=== PATIENT | female | born 1960 | race Caucasian/White ===

== ENCOUNTER 2019-11-30 12:25 | Inpatient (IN) ==
--- NOTE | 2019-11-08 15:28 | PAT Medication Instructions ---
Medication Instructions Date of Service November 08, 2019 Home Medications acetaminophen [Tylenol Extra Strength] 500 mg PO Q6H PRN aluminum hydrox-magnesium carb [Gaviscon] 1 - 2 tab PO BID PRN cholecalciferol (vitamin D3) [Vitamin D3] 125 mcg PO QAM diazepam [Valium] 5 mg PO HS diphenhydramine HCl [Judit-[place] Plus Allergy] 25 mg PO HS PRN hydrochlorothiazide 12.5 mg PO Q2D ibuprofen 600 mg PO Q8H PRN losartan 100 mg PO QAM ondansetron HCl [Zofran] 4 mg PO Q6H PRN pantoprazole [Protonix] 40 mg PO QAM potassium gluconate 550 mg PO DAILY PRN sennosides-docusate sodium [Stool Softener-Laxative] 1 tab-cap PO HS ASK your surgeon for instructions ibuprofen 600 mg PO Q8H PRN DO NOT take the morning of surgery aluminum hydrox-magnesium carb [Gaviscon] 1 - 2 tab PO BID PRN cholecalciferol (vitamin D3) [Vitamin D3] 125 mcg PO QAM hydrochlorothiazide 12.5 mg PO Q2D losartan 100 mg PO QAM potassium gluconate 550 mg PO DAILY PRN Take morning of surgery With a small sip of water, OTHERWISE NOTHING TO EAT OR DRINK AFTER MIDNIGHT: acetaminophen [Tylenol Extra Strength] 500 mg PO Q6H PRN (okay to take up to 4 hours prior to surgery if needed) ondansetron HCl [Zofran] 4 mg PO Q6H PRN (if needed) pantoprazole [Protonix] 40 mg PO QAM Take evening before surgery acetaminophen [Tylenol Extra Strength] 500 mg PO Q6H PRN (if needed) aluminum hydrox-magnesium carb [Gaviscon] 1 - 2 tab PO BID PRN (if needed) diazepam [Valium] 5 mg PO HS diphenhydramine HCl [Judit-[place] Plus Allergy] 25 mg PO HS PRN (if needed) ondansetron HCl [Zofran] 4 mg PO Q6H PRN (if needed) potassium gluconate 550 mg PO DAILY PRN (if needed) sennosides-docusate sodium [Stool Softener-Laxative] 1 tab-cap PO HS Other Notes If you have any questions please call us at [phone] or [phone] or [phone] or [phone]
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
--- NOTE | 2019-11-09 11:50 | XRay Report ---
XR chest Pre-admission PA/Lat CLINICAL HISTORY: Preoperative chest COMPARISON STUDY: No previous studies for comparison. FINDINGS: The cardiac and mediastinal contours are normal. There is no evidence of focal pulmonary co nsolidation. There is no evidence of failure. No pleural effusions are visualized.[There is minor lef t basilar atelectatic change. There is mild right-sided pleural thickening/extrapleural fat along the right lateral chest wall. IMPRESSION: No active disease in the chest. ACT 112: Negative or not required by law. Electronically signed by: Roman Toussaint M.D. 11/09/2019 11:48 AM
[2019-11-09 12:00] LABS: Basophils # (auto) 0.06 K/uL (0-0.2); Eosinophils # (auto) 0.28 K/uL (0-0.5); Eosinophils % (auto) 4.6 %; Hematocrit (blood only) 41.3 % (37-47); Hemoglobin 13.5 g/dL (12.0-16.0); Immature Granulocytes # (auto) 0.01 K/uL (0.00-0.02); Immature Granulocytes % (auto) 0.2 %; Lymphocytes # (auto) 1.19 K/uL (1.2-3.4); Lymphocytes % (auto) 19.6 %; Mean Corpuscular Hemoglobin 30.1 pg (25-34); Mean Corpuscular Hgb Conc 32.7 g/dL (32-36); Mean Platelet Volume 9.6 fL (7.4-10.4); Monocytes # (auto) 0.46 K/uL (0.11-0.59); Monocytes % (auto) 7.6 %; Neutrophils # (auto) 4.08 K/uL (1.4-6.5); Platelet Count 314 K/uL (130-400); RDW Coefficient of Variation 13.4 % (11.5-14.5); RDW Standard Deviation 44.7 fL (36.4-46.3); Red Blood Count 4.49 M/uL (4.2-5.4); White Blood Count 6.08 K/uL (4.8-10.8)
[2019-11-09 12:01] LABS: Appearance Urine Clear (Clear); Bilirubin Urine Negative (Negative); Blood Urine Negative (Negative); Color Urine Yellow; Glucose Urine UA Negative (Negative); Ketones Urine Negative (Negative); Leukocyte Esterase Urine Negative (Negative); Nitrite Urine Negative (Negative); Protein Urine Negative (Negative); Specific Gravity Urine 1.009 (1.000-1.030); Urobilinogen Urine Negative (Negative)
[2019-11-09 12:08] LABS: Calcium 9.5 mg/dl (8.5-10.1); Creatinine Clr Calc Pharmacy 61.1 ml/min; Est GFR (African American) 64.6; Est GFR (Non-African American) 55.8; Potassium 3.4 mmol/L (3.5-5.1)
[2019-11-09 12:12] LABS: Partial Thromboplastin Time 27.1 Seconds (21.0-31.0); Prothrombin Time 10.5 Seconds (9.0-12.0)
[~2019-11-30 12:25] MED LIST: ACETAMINOPHEN 500 MG TAB PO SCH; CeleBREX 200 MG CAP PO SCH; GABAPENTIN 600 MG DOSE PO SCH; LR 15ML/HR IV SCH; ceFAZolin 2000MG 2,000 MG/15 ML SYR IV SCH
[2019-11-30] MEDS ORDERED: MIDAZOLAM HCL 1 MG/ML 2ML VIAL ONE (12:31)
[2019-11-30] MEDS ORDERED: fentaNYL citrate 100 MCG/2 ML VIAL ONE (12:31)
[2019-11-30] MEDS ORDERED: DEXAMETHASONE SOD INJ 4 MG/ML VIAL ONE (13:34)
[2019-11-30] MEDS ORDERED: ROCURONIUM BROMIDE 10 MG/ML 5 ML VIAL IV ONE (13:34)
[2019-11-30] MEDS ORDERED: LIDOCAINE HCL 2% 2 ML VIAL/AMP(20MG/ML) INFIL ONE (13:34)
[2019-11-30] MEDS ORDERED: NEOSTIGMINE METHYLSULFATE 1 MG/ML 10ML VIAL ONE (13:34)
[2019-11-30] MEDS ORDERED: PROPOFOL IV EMULSION 10 MG/ML 20 ML VIAL IV ONE (13:34)
[2019-11-30] MEDS ORDERED: GLYCOPYRROLATE 0.2 MG/ML VIAL ONE (13:34)
[2019-11-30] MEDS ORDERED: ONDANSETRON INJ 2 MG/ML 2 ML VIAL ONE (13:34)
[2019-11-30] MEDS ORDERED: LARYING-O-JET KIT (LTA) ONE (13:34)
[2019-11-30] MEDS ORDERED: PHENYLEPHRINE 100MCG/ML 5ML SYR ONE (13:34)
[2019-11-30] MEDS ORDERED: ePHEDrine sulfate 50 MG/ML SYR ONE (13:34)
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
--- NOTE | 2019-11-30 13:59 | History & Physical Bridge Note ---
Date of Service November 30, 2019 History & Physical Bridge Note I have examined the patient, reviewed the History & Physical and in the interval since the performance of the History & Physical I have noted the following changes of clinical significance: no changes noted
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
[2019-11-30] MEDS ORDERED: HYDROmorphone INJ 1 MG/ML SYRINGE IV PRN (14:09)
[2019-11-30] MEDS ORDERED: ePHEDrine sulfate 50 MG/ML AMP IV PRN (14:09)
[2019-11-30] MEDS ORDERED: ATROPINE SULFATE 0.1 MG/ML 10ML SYR IV PRN (14:09)
[2019-11-30] MEDS ORDERED: ONDANSETRON INJ 2 MG/ML 2 ML VIAL IV PRN (14:09)
[2019-11-30] MEDS ORDERED: BACITRACIN INJ 50,000 UNIT VIAL ONE (14:14)
[2019-11-30] MEDS ORDERED: BUPIVACAINE/EPINEPHRINE 0.25% 1:200,000 30 ML VIAL ONE (14:14)
[2019-11-30] MEDS ORDERED: HYDROmorphone INJ 2 MG/ML SYR/VIAL ONE (15:28)
[2019-11-30] MEDS ORDERED: FLOSEAL HEMOSTATIC MATRIX 10ML TOP ONE (15:29)
--- NOTE | 2019-11-30 16:10 | Operative Report ---
Post Operative Report Pre & Post Diagnosis Operation Date: 11/30/19 07:00 Pre-Op Diagnosis: Spinal Stenosis, Lumbar Region with Neurogenic Claudication Post-Op Diagnosis: Spinal Stenosis, Lumbar Region with Neurogenic Claudication I identified the patient and participated in the time-out.: Yes Procedure Operation Date: 11/30/19 07:00 Actual Procedures #1 lumbar decompression with bilateral medial facetectomies and foraminotomies L4-5 per #2 posterior spinal fusion L4-5. #3 placement of posterior instrumentation L4-5. #4 interbody fusion L4-5. #5 placement peek cage 12 x 22 mm L4-5 per #6 placement locally harvested morselized autograft in the posterior gutters. #7 placement infuse collagen sponge, master graft in the posterior lateral gutters and osteopenic body space. Surgeon Chase Saab, DO Photographer Apprentice Lithographic Vicky Lowe Estimated Blood Loss 150 Findings See Below The patient is 5 foot 2 inches tall weighing over 98 kg with a BMI in excess of 39. Patient's body habitus did create significant technical difficulty requiring her deepest retractors and longus instruments in order to perform her procedure. This added at least 50% increase to the operative time. Specimens None Indications This is a 4-year-old female who presents with above-mentioned diagnosis after failing course of nonoperative care is here for surgical invention. Description of Procedure Patient was met with identified informed consent obtained. Patient was then ta mark to the operative suite underwent an patient placed in a prone position the Carlos table on top of the Braxton frame. All bony prominences well-padded eyes inspected to ensure no external pressure placed upon them. This point the lumbar spine was prepped and draped in normal sterile fashion. Sharp dissection with the assistance of Bovie cautery was performed down to and exposing the lamina and transverse processes of L4 and L5 bilaterally. From caudal cephalad fashion complete laminectomy of L4 was performed including bilateral medial facetectomies and foraminotomies addressing severe spinal stenosis. Pedicle screws were then placed in L4 and L5 bilaterally with assistance of fluoroscopy and appropriately sized nicolás placed. By way the transforaminal portion of right a complete discectomy was performed endplates curetted to subcortical any bone and a 12 x 22 mm peek cage filled with osteobone graft tapped in position. The rods were then locked into final position bilaterally. The transverse processes of L4 and L5 burred to subcortical bleeding bone. Infuse collagen sponge master graft local autograft was placed in the posterior gutters. 15 round BREA drain inserted. The incision was then closed with 1 Vicryl the fascia 2-0 Vicryl subcutaneously and 4 Monocryl for final skin closure. Steri-Strips dressings placed. Patient waken taken PACU stable condition. Please note spinal cord monitoring was utilized at the procedure and no changes noted. Lastly Vicky Lowe was present at the entire surgery involved the patient positioning complex portions of the surgery and final skin closure. I attest to the content of the Intraoperative Record and any orders documented therein. Any exceptions are noted below.
--- NOTE | 2019-11-30 16:26 | Fluoroscopy Report ---
INTRAOPERATIVE RADIOGRAPHS CLINICAL HISTORY: L4-L5 spinal fusion. Fluoroscopy time: 12 seconds. FINDINGS: 2 spot fluoroscopic views of the lumbar spine are presented. There has been discectomy at L 4-L5 with laminectomy and posterior fusion at this level. Interpedicular screws are in place. The ort hopedic hardware appears intact. IMPRESSION: Intraoperative images from L4-L5 spinal fusion as above. Electronically signed by: Maxwell Lindsay M.D. 11/30/2019 4:25 PM
[2019-11-30] MEDS: fentaNYL citrate 100 MCG/2 ML VIAL IV PRN ×2 (16:36→18:44)
--- NOTE | 2019-11-30 17:04 | Anesthesiology Progress Note ---
Date of Service November 30, 2019 Anesthesia Post Procedure Vital Signs Vital Signs: Temp Pulse Pulse Resp BP Pulse Ox 11/30/19 16:50 36.4 C L 56 L 15 131/85 100 11/30/19 16:40 60 12 136/77 100 11/30/19 16:30 83 18 136/79 100 11/30/19 16:22 36.7 C 93 H 14 141/93 H 99 11/30/19 12:58 36.9 C 96 H 16 133/91 95 Pain Intensity Back: Pain Intensity: 4 Transfer of Care Handoff Completed per policy Notes Mental Status: alert / awake / arousable and participated in evaluation Patient Amnestic to Procedure: Yes Nausea / Vomiting: adequately controlled Pain: adequately controlled Airway Patency, RR, SpO2: stable & adequate BP & HR: stable & adequate Hydration State: stable & adequate Anesthetic Complications: no major complications apparent and Pt Satisfied with anesthetic care
[2019-11-30] MEDS ORDERED: traMADol HCL 50 MG TABLET PO PRN (19:25)
[2019-11-30] MEDS ORDERED: bisacodyL 10 MG SUPP PR PRN (19:25)
[2019-11-30] MEDS ORDERED: HYDROmorphone INJ 0.5 MG/0.5 ML SYR IV PRN (19:25)
[2019-11-30] MEDS ORDERED: METOCLOPRAMIDE HCL INJ 5 MG/ML 2 ML VIAL IV PRN (19:25)
[2019-11-30] MEDS ORDERED: LORazepam 0.5 MG TAB PO PRN (19:25)
[2019-11-30] MEDS ORDERED: FAMOTIDINE 20 MG TAB PO PRN (19:25)
[2019-11-30] MEDS ORDERED: MAGNESIUM HYDROXIDE SUSP 30 ML UDC PO PRN (19:25)
[2019-11-30] MEDS ORDERED: [UNRECOGNIZED DRUG - REMARK] PO PRN (19:25)
[2019-11-30] MEDS ORDERED: DO NOT ADMINISTER FLU VACCINE PRN (19:25)
[2019-11-30] MEDS ORDERED: hydrOXYzine HCl 25 MG TAB PO PRN (19:25)
[2019-11-30] MEDS ORDERED: SOD PHOSPHATE/SOD BIPHOSPHATE ENEMA 132 ML BTL PR PRN (19:25)
[2019-11-30] MEDS ORDERED: ONDANSETRON 4 MG OD TAB PO PRN (19:25)
[2019-11-30] MEDS ORDERED: LORazepam 0.5 MG/1 ML VIAL IV PRN (19:25)
[2019-11-30] MEDS ORDERED: ACETAMINOPHEN 1,000 MG/100 ML VIAL IV PRN (19:25)
[2019-11-30] MEDS ORDERED: PROMETHAZINE HCL 12.5 MG in SODIUM CHLORIDE 0.9% 50 ML IV PRN (19:25)
[2019-11-30] MEDS ORDERED: DO NOT ADMINISTER PNEUMOCOCCAL VACCINE PRN (19:25)
[2019-11-30] MEDS ORDERED: diphenhydrAMINE Capsule 25 MG CAP PO PRN (19:25)
[2019-11-30] MEDS ORDERED: NON-FORMULARY MEDICATION (Acetaminophen 500 MG) PO PRN (19:25)
[2019-11-30] MEDS ORDERED: NALOXONE HCL 0.4 MG/1 ML VIAL/CARP IV PRN (19:25)
[2019-11-30] MEDS ORDERED: NON-FORMULARY MEDICATION (Potassium Gluconate 550 MG) PO PRN (19:25)
[2019-11-30] MEDS: DOCUSATE SODIUM/SENNA 50/8.6MG TAB PO SCH (20:28)
[2019-11-30] MEDS: SODIUM CHLORIDE 0.9% 1000ML 1,000 ML IV SCH (20:28)
[2019-11-30] MEDS: HYDROmorphone INJ 1 MG/ML SYRINGE IV PRN (20:39)
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
[2019-11-30] MEDS: diazePAM 5 MG TABLET PO SCH (21:30)
[2019-11-30] MEDS ORDERED: POTASSIUM CHLORIDE 10 MEQ TABCR PO STA (21:30)
[2019-11-30] MEDS: ALUMINUM/MAGNESIUM SUSP 30 ML UDC PO PRN (21:34)
[2019-11-30] MEDS: ceFAZolin 2000MG 2,000 MG/15 ML SYR IV SCH (22:12)
[2019-11-30] MEDS: ONDANSETRON INJ 2 MG/ML 2 ML VIAL IV PRN (22:21)
[2019-12-01] MEDS: HYDROmorphone INJ 1 MG/ML SYRINGE IV PRN ×4 (00:45→16:46)
[2019-12-01] MEDS: ALUMINUM/MAGNESIUM SUSP 30 ML UDC PO PRN ×3 (02:19→18:53)
[2019-12-01] MEDS: SODIUM CHLORIDE 0.9% 1000ML 1,000 ML IV SCH (03:25)
[2019-12-01] MEDS: oxyCODONE HCL IR 5 MG TAB (IMMEDIATE RELEASE) PO PRN ×4 (04:15→23:58)
[2019-12-01] MEDS: POLYETHYLENE (MIRALAX) 17 GM PACK PO SCH ×4 (05:32→20:44)
[2019-12-01] MEDS ORDERED: SODIUM CHLORIDE 0.9% 250 ML IV ONE (06:19)
[2019-12-01] MEDS: ceFAZolin 2000MG 2,000 MG/15 ML SYR IV SCH (06:21)
[2019-12-01 06:35] LABS: Basophils # (auto) 0.01 K/uL (0-0.2); Basophils % (auto) 0.1 %; Hematocrit (blood only) 35.5 % (37-47); Hemoglobin 11.3 g/dL (12.0-16.0); Immature Granulocytes # (auto) 0.02 K/uL (0.00-0.02); Immature Granulocytes % (auto) 0.2 %; Lymphocytes # (auto) 0.59 K/uL (1.2-3.4); Lymphocytes % (auto) 5.6 %; Mean Corpuscular Hemoglobin 30.1 pg (25-34); Mean Corpuscular Hgb Conc 31.8 g/dL (32-36); Mean Corpuscular Volume 94.4 fL (80-100); Mean Platelet Volume 9.9 fL (7.4-10.4); Monocytes # (auto) 0.64 K/uL (0.11-0.59); Monocytes % (auto) 6.1 %; Neutrophils # (auto) 9.29 K/uL (1.4-6.5); Platelet Count 284 K/uL (130-400); RDW Coefficient of Variation 13.1 % (11.5-14.5); Red Blood Count 3.76 M/uL (4.2-5.4); White Blood Count 10.55 K/uL (4.8-10.8)
[2019-12-01 07:18] LABS: BUN Creatinine Ratio 18.8 (10-20); Calcium 7.9 mg/dl (8.5-10.1); Creatinine Clr Calc Pharmacy 75.2 ml/min; Est GFR (African American) 83.9; Est GFR (Non-African American) 72.4; Potassium 4.2 mmol/L (3.5-5.1)
[2019-12-01] MEDS: ONDANSETRON INJ 2 MG/ML 2 ML VIAL IV PRN (07:36)
[2019-12-01] MEDS: LOSARTAN POTASSIUM 50 MG TAB PO SCH (08:37)
[2019-12-01] MEDS: PANTOprazole 40 MG TAB PO SCH (08:38)
[2019-12-01] MEDS: CHOLECALCIFEROL 1,000 UNITS 25 MCG TAB PO SCH (08:38)
[2019-12-01] MEDS ORDERED: hydroCHLOROthiazide 25 MG TAB PO SCH (09:00)
[2019-12-01] MEDS: ACETAMINOPHEN 500 MG TAB PO PRN ×2 (09:28→20:09)
--- NOTE | 2019-12-01 12:12 | Orthopedic Progress Note ---
Date of Service December 01, 2019 Assessment & Plan (1) Neurogenic claudication due to lumbar spinal stenosis: Admission and Anticipated Discharge Date Admission Date: November 30, 2019 At this time we will continue physical therapy monitor BREA output anticipate po ssible discharge home tomorrow. Subjective Back pain controlled leg pain improved Physical Exam Physical Exam: Patient is in the chair at the bedside. Skin strength testing. Appears comfortable. Results & Data ([facility]) Vital Signs (Past 12 Hours) Vital Signs Temp Pulse Pulse Resp BP Pulse Ox 12/01/19 11:07 36.9 C 65 16 121/79 98 12/01/19 07:25 36.7 C 57 L 18 120/78 98 12/01/19 03:22 36.6 C 65 16 107/69 94 12/01/19 03:19 80 18 94
[2019-12-01] MEDS ORDERED: SODIUM CHLORIDE 0.9% 1000ML 500 ML IV ONE (13:30)
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
[2019-12-01] MEDS: diazePAM 5 MG TABLET PO SCH (20:09)
[2019-12-01] MEDS: DOCUSATE SODIUM/SENNA 50/8.6MG TAB PO SCH (20:10)
[2019-12-02] MEDS: POLYETHYLENE (MIRALAX) 17 GM PACK PO SCH ×4 (03:49→22:56)
[2019-12-02 06:22] LABS: Hematocrit (blood only) 33.5 % (37-47); Hemoglobin 10.7 g/dL (12.0-16.0); Mean Corpuscular Hemoglobin 29.9 pg (25-34); Mean Corpuscular Hgb Conc 31.9 g/dL (32-36); Mean Corpuscular Volume 93.6 fL (80-100); Mean Platelet Volume 9.5 fL (7.4-10.4); Platelet Count 229 K/uL (130-400); RDW Coefficient of Variation 13.2 % (11.5-14.5); RDW Standard Deviation 45.5 fL (36.4-46.3); Red Blood Count 3.58 M/uL (4.2-5.4); White Blood Count 8.95 K/uL (4.8-10.8)
[2019-12-02 06:50] LABS: Calcium 7.9 mg/dl (8.5-10.1); Creatinine Clr Calc Pharmacy 75.2 ml/min; Est GFR (African American) 83.9; Est GFR (Non-African American) 72.4; Potassium 3.7 mmol/L (3.5-5.1)
[2019-12-02] MEDS: oxyCODONE HCL IR 5 MG TAB (IMMEDIATE RELEASE) PO PRN ×3 (07:41→19:27)
[2019-12-02] MEDS: PANTOprazole 40 MG TAB PO SCH (09:24)
[2019-12-02] MEDS: DEXAMETHASONE SOD PHOSPHATE 8 MG in SYRINGE 0 ML IV SCH (09:24)
[2019-12-02] MEDS: CHOLECALCIFEROL 1,000 UNITS 25 MCG TAB PO SCH (09:24)
[2019-12-02] MEDS: LOSARTAN POTASSIUM 50 MG TAB PO SCH (09:24)
[2019-12-02] MEDS: HYDROmorphone INJ 1 MG/ML SYRINGE IV PRN (09:36)
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
--- NOTE | 2019-12-02 10:29 | Orthopedic Progress Note ---
Date of Service December 02, 2019 Assessment & Plan (1) Neurogenic claudication due to lumbar spinal stenosis: Admission and Anticipated Discharge Date Admission Date: November 30, 2019 We will continue with physical therapy today monitor BREA output anticipate disc harge home tomorrow. Subjective Patient complaining of significant increase in back pain today. No leg pain. Physical Exam Physical Exam: Patient is in the chair at the bedside is good strength testing. Appears comfortable. Results & Data ([facility]) Vital Signs (Past 12 Hours) Vital Signs Temp Pulse Pulse Resp BP Pulse Ox 12/02/19 07:11 37.3 C 87 17 109/68 97 12/02/19 04:05 65 18 92 12/01/19 23:57 37.4 C 93 H 16 110/73 92
[2019-12-02] MEDS: ALUMINUM/MAGNESIUM SUSP 30 ML UDC PO PRN (14:16)
[2019-12-02] MEDS: ACETAMINOPHEN 500 MG TAB PO PRN (15:38)
[2019-12-02] MEDS ORDERED: bisacodyL 5 MG TABEC PO PRN (16:16)
--- NOTE | 2019-12-02 19:23 | Billing Data ---
Date of Service November 30, 2019 Coding Level of Care Code 00310 Inpt Consult Level 3
[2019-12-02] MEDS: DOCUSATE SODIUM/SENNA 50/8.6MG TAB PO SCH (20:28)
[2019-12-02] MEDS: diazePAM 5 MG TABLET PO SCH (20:28)
[2019-12-03] MEDS: oxyCODONE HCL IR 5 MG TAB (IMMEDIATE RELEASE) PO PRN ×2 (03:20→10:29)
[2019-12-03 06:15] LABS: Hematocrit (blood only) 33.1 % (37-47); Hemoglobin 10.7 g/dL (12.0-16.0); Mean Corpuscular Hemoglobin 30.4 pg (25-34); Mean Corpuscular Hgb Conc 32.3 g/dL (32-36); Mean Platelet Volume 9.5 fL (7.4-10.4); Platelet Count 241 K/uL (130-400); RDW Coefficient of Variation 13.1 % (11.5-14.5); RDW Standard Deviation 44.8 fL (36.4-46.3); Red Blood Count 3.52 M/uL (4.2-5.4); White Blood Count 9.39 K/uL (4.8-10.8)
[2019-12-03 06:50] LABS: Calcium 8.7 mg/dl (8.5-10.1); Creatinine Clr Calc Pharmacy 80.8 ml/min; Est GFR (African American) 91.5; Est GFR (Non-African American) 78.9; Potassium 3.3 mmol/L (3.5-5.1)
[2019-12-03] MEDS ORDERED: POTASSIUM CHLORIDE CRTAB 20 MEQ TABCR PO STA (07:42)
[2019-12-03] MEDS: CHOLECALCIFEROL 1,000 UNITS 25 MCG TAB PO SCH (08:10)
[2019-12-03] MEDS: ACETAMINOPHEN 500 MG TAB PO PRN (08:10)
[2019-12-03] MEDS: PANTOprazole 40 MG TAB PO SCH (08:11)
[2019-12-03] MEDS: DEXAMETHASONE SOD PHOSPHATE 8 MG in SYRINGE 0 ML IV SCH (08:11)
--- NOTE | 2019-12-03 10:39 | Discharge Summary ---
Date of Service December 03, 2019 Admission HPI Per Admitting Provider This is a 58-year-old female who presents with marked decline in status with back and leg pain is here for surgical intervention. Principal Diagnosis Lumbar spinal stenosis with neurogenic claudication Discharge Data Allergies Allergy/AdvReac Type Severity Reaction Status Date / Time ciprofloxacin [From Cipro] Allergy Unknown rash, hives Verified 11/30/19 12:52 Consultations 11/30/19 19:25 Consult Case Management - Discharge Planning Routine Consult Hospitalist Routine Procedures Performed Operation Date: 11/30/19 07:00 Actual Procedures p L4-L5 Decompression and Fusion, Spinal Cord Monitoring, Application of Bone Morphogenetic Protein, Insertion of Interbody Cage L4-L5(Not Applicable) - Chase Saab DO Ordered Studies 11/30/19 13:30 FL fluoroscopy <1hr Routine FL lumbar spine 2-3V Routine Hospital Course (1) Neurogenic claudication due to lumbar spinal stenosis: Patient with lumbar decompression fusion tolerated well second orthopedic for postoperative. Postop day 1 she was up and ambulating progressed to postop day #2 and 3 BREA drain decreasing probably. Pain well controlled. Strength improved. Subsequently discharged home. Discharge orders instructions from the chart for further review. Total Time Total Time Spent Total Time Spent (In Minutes): 20 minutes Discharge Plan Discharge Items Patient Disposition: Home - Self-Care Reason For Visit: Spinal Stenosis, Lumbar Region with Neurogenic Discharge Diagnosis: Lumbar spinal stenosis with neurogenic claudication Activity: As commented below Non-emergency contact: Primary Care Provider Call non-emergency contact if: you have any medication questions Follow-up/Referrals: Aquiles Portillo [Primary Care Provider] - Diet: Regular Addtl Attending Provider Instructions: ACTIVITY RECOMMENDATIONS: SELF CARE INSTRUCTIONS AFTER THORACIC/LUMBAR FUSIONS 1. You may walk to your tolerance. It is good exercise for your legs and back. Expect some back and intermittent leg aches and pains. 2. You may perform "counter-top" level activities (make a sandwich, steve with a project, etc.). 3. No bending or lifting of more than 10 pounds or back twisting of any nature (roll like a log when turning in bed). 4. You may ride in a car for 20-30 minutes at a time. No driving until after your first visit with your doctor. 5. Frequent changes of position and restricting sitting to 30 minutes at a time will help limit the amount of back spasms and stiffness you may experience. 6. You may discontinue the use of ambulatory aids (cane, crutches, etc.) once your strength and confidence allow. 7. You may packing machine feeder the shower and let water strike your incision when you arrive home at least once daily. Do not take a tub bath, sit in a hot tub or go into a swimming pool until after your first recheck in the office. SPECIAL CARE INSTRUCTIONS: VERY IMPORTANT TO READ AND REVIEW A. Your surgical incision has been closed with a cosmetic suture under the skin that will dissolve in about 6 weeks. In 14 days, you can use a pair of clean scissors and cut the suture that is left outside of the skin at the ends of your incision. 1. The small skin tapes can be removed 7 days after surgery if they have not fallen off by that point. 2. You may keep the wound open to air as much as possible to promote healing after post-op day number 5 unless told otherwise by your doctor. 3. If you think the wound looks like it is becoming infected (redness or worsening drainage) and/or you are experiencing fever, chill or worsening back pain and muscle spasms, contact the office so that we may evaluate you as soon as possible. B. Complications are uncommon, but please contact us if you have any signs or symptoms of: 1. wound infection (fever higher than 102.5 degrees F, redness, separation of wound, drainage, or increasing pain from the incision) 2. blood clots in legs (pain, swelling, redness and warmth in legs) 3. urinary tract infection (fever higher than 102.5 degrees F, burning upon urination or increased frequency of urination) 4. nerve problems (inability to walk on your toes or heels, numbness, loss of bowel or bladder control) 5. any other symptoms that concern you C. Please call the office at if you have any concerns or questions about your operation or recovery. D. No smoking! Smoking drastically decreases the chance of a solid fusion. E. Do not take any anti-inflammatory medications (Indocin, Advil, Motrin, Aspirin, Naprosyn, etc.) as these may inhibit the chance of a solid fusion. Tylenol is okay to take for pain. MANAGING PAIN AFTER SPINAL SURGERY 1. Narcotic medication is intended for short-term use and will be provided for surgical pain. Surgical pain usually lasts for a period of 4-6 weeks. Narcotic medication includes Percocet, Vicodin, Darvocet, Tylenol #3 or Lortab. 2. Longer-term pain is more appropriately treated with non-narcotic medication such as Tylenol ES. 3. Muscle spasm is not appropriately treated with narcotics. Muscle relaxers such as Soma, Flexeril or Skelaxin can be used along with Tylenol ES. 4. Remember that we all live with some "aches and pains". This is not unusual or uncommon after an injury or as we get older. a. Back pain is expected and may include muscle spasms for 4 to 6 weeks after surgery. The pain should gradually improve. If the pain worsens for no apparent reason, please contact the office. b. Intermittent leg pain may also be experienced and should not be concerned about unless it worsens for no apparent reason. If so, please contact the office. 5. We will provide appropriate medication within the normal guidelines of their prescribed use. We will also be very cautious and aware of potential abuse and extended duration of patients' medication needs. a. Pain medications are for your comfort and to assist with sleep and rest so that the tissue can heal. They are not provided in order to return to normal activity and should not be used through the day. To do so or worsening pain at night can result from ongoing tissue damage and development of tolerance to the prescribed medicine. 6. Please allow 2-3 days to process refills. Prescriptions will not be mailed but must be picked up at the office. FOLLOW UP VISIT: Keep your scheduled follow-up appointment. Any questions, please call the office at . 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 Pending Studies at Discharge: No Stand-Alone Forms: [employer], Smoking Cessation Medications and DC Order Prescriptions: New tramadol 50 mg tablet 50 mg PO Q6H PRN (Reason: pain, moderate) Qty: 20 RF: 0 oxycodone 5 mg tablet 5 mg PO Q6H PRN (Reason: pain, severe) Qty: 20 RF: 0 Continued ondansetron HCl [Zofran] 4 mg Tablet 4 mg PO Q6H PRN (Reason: Nausea) RF: 0 sennosides-docusate sodium [Stool Softener-Laxative] 8.6-50 mg Tablet 1 tab-cap PO HS RF: 0 pantoprazole [Protonix] 40 mg Tablet,Delayed Release (Dr/Ec) 40 mg PO QAM RF: 0 diphenhydramine HCl [Judit-[place] Plus Allergy] 25 mg Tablet 25 mg PO HS PRN (Reason: Allergy Symptoms) RF: 0 hydrochlorothiazide 25 mg Tablet 12.5 mg PO Q2D RF: 0 Gaviscon 160-105 mg Tablet,Chewable 1 - 2 tab PO BID PRN (Reason: Acid Reflux) RF: 0 losartan 100 mg Tablet 100 mg PO QAM RF: 0 acetaminophen [Tylenol Extra Strength] 500 mg Capsule 500 mg PO Q6H PRN (Reason: Pain) RF: 0 diazepam [Valium] 5 mg Tablet 5 mg PO HS RF: 0 cholecalciferol (vitamin D3) [Vitamin D3] 125 mcg (5,000 unit) Tablet 125 mcg PO QAM RF: 0 potassium gluconate 550 mg (90 mg) Tablet 550 mg PO DAILY PRN (Reason: Muscle Spasm) RF: 0 oxycodone-acetaminophen [Percocet] 5-325 mg Tablet 1 tab PO DAILY PRN (Reason: Pain) RF: 0 Discontinued ibuprofen 600 mg Tablet 600 mg PO Q8H PRN (Reason: Pain) RF: 0 Discharge Orders: Discharge Order (Routine); Ordered 12/03/19 Ordered By: Chase Saab Admission Data Admit Date/Time: 11/30/19 16:26 Attending Provider: Chase Saab Admit Provider: Chase Saab Primary Care Provider: Aquiles Portillo Other Providers: Meenakshi Flannery
[2019-12-03] MEDS: POLYETHYLENE (MIRALAX) 17 GM PACK PO SCH (12:01)
== END 2019-12-03 13:00 | disposition home or self-care (01) | DRG 455 ==
LOC: ASU 12:25 → 3E 16:26